=== PATIENT | female | born 1960 | race Hispanic/Latino ===

== ENCOUNTER 2016-10-04 08:36 | Emergency (ER) | payer OTHER ==
[2016-10-04 08:37] VITALS: BMI 54.9
[2016-10-04] MEDS ORDERED: Tetracaine 0.5% Ophth 2 ML BOTTLE OS STA (08:48)
[2016-10-04 08:50] VITALS: BP 101/40; PULSE 84; RESP 16; TEMP 97.8; O2SAT 96
[2016-10-04] MEDS ORDERED: Tetracaine 0.5% Ophth 2 ML BOTTLE ONE (08:55)
--- NOTE | 2016-10-04 09:03 | ED PDOC ---
Arrival/HPI - General Chief Complaint: Eye Problem Time Seen by Provider: 10/04/16 08:48 Historian: Patient - History of Present Illness Narrative History of Present Illness (Text): 10/04/16 08:59 A 56 year old female presents to the emergency department complaining of left eye pain for the past 2 hours. Patient reports she felt something is in her eye and used eye drops, with no relief. Patient states she contacted her PMD who instructed her to come for further evaluation. Patient notes blurry vision but denies any fever, chills, nausea, vomiting, diarrhea, abdominal pain, chest pain , shortness of breath, headache, dizziness or any other complaints. Time/Duration: Other (2 hours, since 07:00 this morning) Symptom Course: Unchanged Quality: Other Context: Home Past Medical History - Provider Review Nursing Documentation Reviewed: Yes - Infectious Disease Hx of Infectious Diseases: None - Tetanus Immunization Tetanus Immunization: Unknown - Cardiac Hx Hypertension: Yes - Pulmonary Hx Asthma: Yes Hx Chronic Obstructive Pulmonary Disease (COPD): Yes - Neurological Hx Migraine: Yes - HEENT Hx HEENT Disorder: No - Renal Hx Renal Disorder: No - Endocrine/Metabolic Hx Endocrine Disorders: No - Hematological/Oncological Hx Blood Disorders: No - Integumentary Hx Dermatological Disorder: No - Musculoskeletal/Rheumatological Hx Arthritis: Yes (pseuriatic) Hx Falls: No Other/Comment: inguinal hernia repair, right rotator cuff sx - Gastrointestinal Hx Diverticulitis: Yes Hx Gastroesophageal Reflux: Yes Other/Comment: cholecystectomy - Psychiatric Hx Depression: Yes Hx Emotional Abuse: No Hx Physical Abuse: No Hx Substance Use: No - Surgical History Hx Cholecystectomy: Yes Hx Orthopedic Surgery: Yes (RIGHT ROTATOR CUFF) - Suicidal Assessment Feels Threatened In Home Enviroment: No Family/Social History - Physician Review Nursing Documentation Reviewed: Yes Family/Social History: No Known Family HX Smoking Status: Current Some Days Smoker Hx Alcohol Use: No Hx Substance Use: No Hx Substance Use Treatment: No Allergies/Home Meds Allergies/Adverse Reactions: Allergies Penicillins Allergy (Verified 10/04/16 08:45) RASH bee stings Allergy (Severe, Uncoded 05/19/14 12:12) ANAPHYLAXIS Home Medications: Home Meds Medication Instructions Recorded Confirmed ALPRAZolam [Xanax] 1 mg PO TID 10/04/16 10/04/16 Albuterol 0.042% [Albuterol 0.042% 3 ml IH Q6H PRN 10/04/16 10/04/16 Inhal Yokasta (1.25mg/3ml) UD] Alosetron HCl 0.5 mg PO BID 10/04/16 10/04/16 Chlorthalidone [Hygroton] 12.5 mg PO MWF 10/04/16 10/04/16 Epinephrine HCl [Epipen 0.3 mg MR PRN PRN 10/04/16 10/04/16 Auto-Injector] Ergocalciferol (Vitamin D2) 50,000 unit PO QWK 10/04/16 10/04/16 [Vitamin D2] Fluocinolone 0.01% Yokasta [Synalar] 1 appl TP BID 10/04/16 10/04/16 Loratadine [Allerclear] 10 mg PO DAILY 10/04/16 10/04/16 Losartan [Cozaar] 100 mg PO DAILY 10/04/16 10/04/16 Mometasone/Formoterol [Dulera] 1 puff IH BID PRN 10/04/16 10/04/16 Montelukast [Singulair] 10 mg PO DAILY 10/04/16 10/04/16 Nystatin [Nyamyc] 100,000 unit TP DAILY 10/04/16 10/04/16 [id number] Ethyl Esters 1 GM 1 gm PO BID 10/04/16 10/04/16 [Lovaza] Omeprazole 40 mg PO DAILY 10/04/16 10/04/16 Ondansetron HCl [Zofran] 4 mg PO BID PRN 10/04/16 10/04/16 Pregabalin [Lyrica] 400 mg PO BID 10/04/16 10/04/16 Prochlorperazine [Compazine] 10 mg PO QID PRN 10/04/16 10/04/16 Ranitidine HCl [Heartburn Relief] 300 mg PO DAILY 10/04/16 10/04/16 Simvastatin 10 mg PO DAILY 10/04/16 10/04/16 Tolterodine [Detrol LA] 2 mg PO DAILY 10/04/16 10/04/16 Ustekinumab [Stelara] mg Q3M 10/04/16 Zolpidem [Ambien] 10 mg PO HS 10/04/16 10/04/16 amLODIPine [Norvasc] 5 mg PO DAILY 10/04/16 10/04/16 amLODIPine [Norvasc] 5 mg PO DAILY 10/04/16 10/04/16 oxyCODONE [oxyCODONE Immediate 30 mg PO BID 10/04/16 10/04/16 Release Tab] rOPINIRole [Requip] 1 mg PO HS 10/04/16 10/04/16 Review of Systems - Physician Review All systems were reviewed & negative as marked: Yes - Review of Systems Constitutional: absent: Fevers, Night Sweats Eyes: Vision Changes (Blurry vision in left eye), Eye Pain (Left eye pain) Respiratory: absent: SOB Cardiovascular: absent: Chest Pain Gastrointestinal: absent: Abdominal Pain, Diarrhea, Nausea, Vomiting Neurological: absent: Headache, Dizziness Physical Exam Vital Signs Reviewed: Yes Vital Signs Temp Pulse Resp BP Pulse Ox 10/04/16 08:46 97.8 F 84 16 101/40 L 96 Temperature: Afebrile Blood Pressure: Hypotensive Pulse: Regular Respiratory Rate: Normal Appearance: Positive for: Well-Appearing, Non-Toxic, Uncomfortable Pain Distress: None Mental Status: Positive for: Alert and Oriented X 3 - Systems Exam Head: Present: Atraumatic, Normocephalic, Other (Eyelid of left eye everted, no foreign body noted. Eye stained with fluorescein and examined with a slit lamp. Patient has a corneal abrasion at the 6 o'clock position, no cells were flared. ) Pupils: Present: PERRL Extroacular Muscles: Present: EOMI Conjunctiva: Present: Normal Mouth: Present: Moist Mucous Membranes Neurological: Present: GCS=15, CN II-XII Intact, Speech Normal Skin: Present: Warm, Dry, Normal Color. No: Rashes Psychiatric: Present: Alert, Oriented x 3, Normal Insight, Normal Concentration Medical Decision Making ED Course and Treatment: 10/04/16 09:[address] Carias's office, who state patient can be seen right away today. I have discussed the results and plan with the patient, who expresses understanding. Patient in agreement with plan. - Medication Orders Current Medication Orders: Discontinued Medications Tetracaine HCl (Tetracaine 0.5% Ophth Soln) 2 drop OS STAT STA Stop: 10/04/16 08:49 Last Admin: 10/04/16 08:59 Dose: 2 drop - Scribe Statement The provider has reviewed the documentation as recorded by the Scribe Deidre Damon Provider Scribe Attestation: All medical record entries made by the Scribe were at my direction and personally dictated by me. I have reviewed the chart and agree that the record accurately reflects my personal performance of the history, physical exam, medical decision making, and the department course for this patient. I have also personally directed, reviewed, and agree with the discharge instructions and disposition. Disposition/Present on Arrival - Present on Arrival Any Indicators Present on Arrival: No History of DVT/PE: No History of Uncontrolled Diabetes: No Urinary Catheter: No History of Decub. Ulcer: No History Surgical Site Infection Following: None - Disposition Have Diagnosis and Disposition been Completed?: Yes Diagnosis: Corneal abrasion Disposition: HOME/ ROUTINE Disposition Time: 09:20 Patient Problems: Current Active Problems Problem Status Onset Corneal abrasion Acute Condition: STABLE Discharge Instructions (ExitCare): Corneal Abrasion (ED) Additional Instructions: Please follow up with the eye doctor in the next 2 days. Return to the ER for any worsening symptoms or for any other concerns. Prescriptions: Erythromycin 0.5% [Ilytocin] 3.5 gm OS QID #1 tube Referrals: Gianfranco Carias MD [Staff Provider] - Follow up with primary
== END 2016-10-04 09:30 | disposition home or self-care (01) ==
LOC: ED 08:36
DX: S05.02XA Injury of conjunctiva and corneal abrasion without foreign body, left eye, initial encounter (principal); X58.XXXA Exposure to other specified factors, initial encounter; Y92.009 Unspecified place in unspecified non-institutional (private) residence as the place of occurrence of the external cause

== ENCOUNTER 2017-01-16 13:02 | Observation (INO) | payer OTHER ==
[2017-01-16 13:24] VITALS: BMI 56.6
[2017-01-16] MEDS ORDERED: Sodium Chloride 0.9% 1,000 ML IV STA (13:40)
[2017-01-16] MEDS ORDERED: Morphine 4 mg/ml ISec IVP STA (13:40)
--- NOTE | 2017-01-16 13:49 | ED PDOC ---
Arrival/HPI - General Chief Complaint: GI Problem Time Seen by Provider: 01/16/17 13:15 Historian: Patient - History of Present Illness Narrative History of Present Illness (Text): 01/16/17 13:43 A 56 year old female, hx of morbid obesity, presents to the emergency department complaining of bloody stool 2 days ago. Patient reports she experiences on and off frequent urgency to go to the bathroom, but then would suddenly feel no use to go. Later on 2 days ago in the evening, she used the bathroom and found to have bloody stool. Patient also states experiencing abdominal pain last night. No other complaints at this time. pt reports multiple episodes of blood in stool. PMD: Dr. Pappas 01/16/17 17:41 Past Medical History - Provider Review Nursing Documentation Reviewed: Yes - Infectious Disease Hx of Infectious Diseases: None - Tetanus Immunization Tetanus Immunization: Unknown - Cardiac Hx Cardiac Disorders: Yes Hx Hypertension: Yes - Pulmonary Hx Asthma: Yes Hx Chronic Obstructive Pulmonary Disease (COPD): Yes - Neurological Hx Neurological Disorder: Yes Hx Migraine: Yes - HEENT Hx HEENT Disorder: No - Renal Hx Renal Disorder: No - Endocrine/Metabolic Hx Endocrine Disorders: No - Hematological/Oncological Hx Blood Disorders: No - Integumentary Hx Dermatological Disorder: No - Musculoskeletal/Rheumatological Hx Arthritis: Yes (pseuriatic) Hx Falls: No Other/Comment: inguinal hernia repair, right rotator cuff sx - Gastrointestinal Hx Diverticulitis: Yes Hx Gastroesophageal Reflux: Yes Other/Comment: cholecystectomy - Genitourinary/Gynecological Hx Genitourinary Disorders: No - Psychiatric Hx Depression: Yes Hx Emotional Abuse: No Hx Physical Abuse: No Hx Substance Use: No - Surgical History Hx Cholecystectomy: Yes Hx Orthopedic Surgery: Yes (RIGHT ROTATOR CUFF) - Anesthesia Hx Anesthesia: Yes Hx Anesthesia Reactions: No - Suicidal Assessment Feels Threatened In Home Enviroment: No Family/Social History - Physician Review Nursing Documentation Reviewed: Yes Family/Social History: No Known Family HX Smoking Status: Current Some Days Smoker Hx Alcohol Use: No Hx Substance Use: No Hx Substance Use Treatment: No Allergies/Home Meds Allergies/Adverse Reactions: Allergies Penicillins Allergy (Verified 01/16/17 13:24) RASH bee stings Allergy (Severe, Uncoded 01/16/17 13:24) ANAPHYLAXIS Home Medications: Home Meds Medication Instructions Recorded Confirmed ALPRAZolam [Xanax] 1 mg PO TID 10/04/16 01/16/17 Albuterol 0.042% [Albuterol 0.042% 3 ml IH Q6H PRN 10/04/16 01/16/17 Inhal Yokasta (1.25mg/3ml) UD] Alosetron HCl 0.5 mg PO BID 10/04/16 01/16/17 Chlorthalidone [Hygroton] 12.5 mg PO MWF 10/04/16 01/16/17 Epinephrine HCl [Epipen 0.3 mg MR PRN PRN 10/04/16 01/16/17 Auto-Injector] Ergocalciferol (Vitamin D2) 50,000 unit PO QWK 10/04/16 01/16/17 [Vitamin D2] Fluocinolone 0.01% Yokasta [Synalar] 1 appl TP BID 10/04/16 01/16/17 Loratadine [Allerclear] 10 mg PO DAILY 10/04/16 01/16/17 Losartan [Cozaar] 100 mg PO DAILY 10/04/16 01/16/17 Mometasone/Formoterol [Dulera] 1 puff IH BID PRN 10/04/16 01/16/17 Montelukast [Singulair] 10 mg PO DAILY 10/04/16 01/16/17 [id number] Ethyl Esters 1 GM 1 gm PO BID 10/04/16 01/16/17 [Lovaza] Omeprazole 40 mg PO DAILY 10/04/16 01/16/17 Ondansetron HCl [Zofran] 4 mg PO BID PRN 10/04/16 01/16/17 Pregabalin [Lyrica] 400 mg PO BID 10/04/16 01/16/17 Prochlorperazine [Compazine] 10 mg PO QID PRN 10/04/16 01/16/17 Ranitidine HCl [Heartburn Relief] 300 mg PO DAILY 10/04/16 01/16/17 Simvastatin 10 mg PO DAILY 10/04/16 01/16/17 Tolterodine [Detrol LA] 2 mg PO DAILY 10/04/16 01/16/17 Ustekinumab [Stelara] 0 mg PO Q3M 10/04/16 01/16/17 Zolpidem [Ambien] 10 mg PO HS 10/04/16 01/16/17 amLODIPine [Norvasc] 5 mg PO DAILY 10/04/16 01/16/17 oxyCODONE [oxyCODONE Immediate 30 mg PO BID 10/04/16 01/16/17 Release Tab] rOPINIRole [Requip] 1 mg PO HS 10/04/16 01/16/17 Review of Systems - Physician Review All systems were reviewed & negative as marked: Yes - Review of Systems Constitutional: absent: Fevers Gastrointestinal: Abdominal Pain, Stool Changes (bloody stool), Other (dyschezia ) Physical Exam Vital Signs Reviewed: Yes Vital Signs Temp Pulse Resp BP Pulse Ox 01/16/17 15:15 67 18 116/74 98 01/16/17 13:02 98.4 F 77 19 118/70 97 Temperature: Afebrile Blood Pressure: Normal Pulse: Regular Respiratory Rate: Normal Appearance: Positive for: Well-Appearing Pain Distress: Mild Mental Status: Positive for: Alert and Oriented X 3 - Systems Exam Head: Present: Atraumatic, Normocephalic Pupils: Present: PERRL Extroacular Muscles: Present: EOMI Conjunctiva: Present: Normal Mouth: Present: Moist Mucous Membranes Neck: Present: Normal Range of Motion Respiratory/Chest: Present: Clear to Auscultation, Good Air Exchange. No: Respiratory Distress, Accessory Muscle Use Cardiovascular: Present: Regular Rate and Rhythm, Normal S1, S2. No: Murmurs Abdomen: Present: Normal Bowel Sounds. No: Tenderness, Distention, Peritoneal Signs Rectal: Present: Other (dark stool wide positive) Back: Present: Normal Inspection Upper Extremity: Present: Normal Inspection. No: Cyanosis, Edema Lower Extremity: Present: Normal Inspection. No: Edema Neurological: Present: GCS=15, CN II-XII Intact, Speech Normal Skin: Present: Warm, Dry, Normal Color. No: Rashes Psychiatric: Present: Alert, Oriented x 3, Normal Insight, Normal Concentration Medical Decision Making ED Course and Treatment: 01/16/17 13:52 Impression: 56 year old female with bloody stool and abdominal pain. Plan: -- EKG -- Abd/Pelvis CT -- Labs -- Urinalysis -- Morphine -- IV Fluids -- Reassess and disposition Prior Visits: Notes and results from previous visits were reviewed. Patient was last seen in the emergency department on 10/04/2016 for left eye pain. Patient was discharged home. Progress Notes: EKG: Ordered, reviewed, and independently interpreted the EKG. Rate : 64 BPM Rhythm : NSR Interpretation : No ST-segment elevations or depressions, no T-wave inversions, normal intervals. Comparison : No previous EKG for comparison. 01/16/17 17:41 h/h stable. in er, dark stool, guiac positive, ct neg, 01/16/2017 17:38 Abd/Pelvis CT FINDINGS: Examination limited by habitus. LOWER THORAX: No visible consolidation, pleural effusion, or pneumothorax. LIVER: Hypoattenuation of the liver compatible with hepatic steatosis. GALLBLADDER AND BILE DUCTS: Cholecystectomy. Mild intra and extrahepatic biliary ductal dilatation. PANCREAS: Unremarkable. SPLEEN: 7 mm probable splenule. Otherwise unremarkable. ADRENALS: 7 mm nodule involving the medial limb left adrenal gland, indeterminate. Unremarkable right adrenal gland. KIDNEYS AND URETERS: The kidneys enhance symmetrically. No hydronephrosis or obstructing calculus identified. VASCULATURE: No aortic aneurysm. BOWEL: Stomach is nondistended. Lack of oral contrast limits evaluation for bowel pathology. Bowel loops appear within normal limits of caliber without evidence of obstruction. APPENDIX: The appendix appears within normal limits of caliber. No secondary signs of acute appendicitis. PERITONEUM: No significant free fluid. No definite free air. LYMPH NODES: No bulky adenopathy identified. BLADDER: Unremarkable. REPRODUCTIVE: The uterus is present. BONES: Mild degenerative changes. OTHER FINDINGS: Surgical clips within the anterior abdomen consistent with remote surgery. IMPRESSION: Cholecystectomy with mild intra and extrahepatic biliary ductal dilatation. 7 mm nodule involving the left adrenal gland medial limb, indeterminate. Hypoattenuation of the liver compatible with hepatic steatosis. Additional incidental findings as above. Dictator: Karla Powers MD 01/16/17 19:17 in er, pt dark stool, guiac postive, no hememesis. dr siddiqui accepts for admission. - Lab Interpretations Lab Results: 01/16/17 13:59 01/16/17 13:59 Lab Results 01/16/17 14:00: Blood Type O POSITIVE, Antibody Screen Negative, BBK History Checked No verified bt 01/16/17 13:59: Sodium 141, Potassium 4.1, Chloride 105, Carbon Dioxide 24, Anion Gap 16, BUN 17, Creatinine 1.0, Est GFR ( Amer) > 60, Est GFR (Non- Af Amer) 57, Random Glucose 87, Calcium 9.3, Total Bilirubin 1.1, AST 25, ALT 36 , Alkaline Phosphatase 86, Lactate Dehydrogenase 533, Total Creatine Kinase 158 , Troponin I < 0.01, Total Protein 7.7, Albumin 4.4, Globulin 3.3, Albumin/ Globulin Ratio 1.3, Amylase 59, Lipase 51 01/16/17 13:59: PT 10.3, INR 0.95, APTT 28.6 01/16/17 13:59: WBC 5.5, RBC 4.57, Hgb 13.9, Hct 39.8, MCV 87.1, MCH 30.4, MCHC 34.9, RDW 13.8, Plt Count 175, MPV 10.5, Gran % 54.2, Lymph % (Auto) 35.2 H, [place] % (Auto) 6.2 H, Eos % (Auto) 4.0, Baso % (Auto) 0.4, Gran # 2.99, Lymph # 1.9, [place] # 0.3, Eos # 0.2, Baso # 0.02 01/16/17 13:30: Urine Color Yellow, Urine Appearance Clear, Urine pH 6.0, Ur Specific [place] 1.010, Urine Protein Negative, Urine Glucose (UA) Negative, Urine Ketones Negative, Urine Blood Negative, Urine Nitrate Negative, Urine Bilirubin Negative, Urine Urobilinogen 0.2, Ur Leukocyte Esterase Negative I have reviewed the lab results: Yes - RAD Interpretation Radiology Orders: 01/16/17 15:42 ABD & PELVIS IV CONTRAST ONLY [CT] Stat - Medication Orders Current Medication Orders: Pantoprazole Sodium (Protonix 40mg Ivpb) 40 mg in 100 mls @ 20 mls/hr IVPB .Q5H JENNIE Last Admin: 01/16/17 19:04 Dose: 20 mls/hr eMAR Start Stop Document 01/16/17 19:04 OCS (Rec: 01/16/17 19:05 OCS [id number]) Intravenous Solution Start Date 01/16/17 Start Time 19:05 Ondansetron HCl (Zofran Inj) 4 mg IVP Q4H PRN PRN Reason: Nausea/Vomiting Pantoprazole Sodium (Protonix Inj) 40 mg IVP DAILY JENNIE Discontinued Medications Sodium Chloride (Sodium Chloride 0.9%) 1,000 mls @ 999 mls/hr IV .Q1H1M STA Stop: 01/16/17 14:40 Last Admin: 01/16/17 14:07 Dose: 999 mls/hr eMAR Start Stop Document 01/16/17 14:07 SE (Rec: 01/16/17 14:07 [id number]) Intravenous Solution Start Date 01/16/17 Start Time 14:07 Morphine Sulfate (Morphine) 4 mg IVP STAT STA Stop: 01/16/17 13:41 Last Admin: 01/16/17 14:07 Dose: 4 mg MAR Pain Assessment Document 01/16/17 14:07 SE (Rec: 01/16/17 14:07 [id number]) Pain Reassessment Is this a pain reassessment? No Sleep Is patient sleeping during reassessment? No Presence of Pain Presence of Pain Yes Pain Scale Used Pain Scale Used Numeric IVP Administration Document 01/16/17 14:07 SE (Rec: 01/16/17 14:07 [id number]) Charges for Administration # of IVP Administrations 1 Morphine Sulfate (Morphine) 2 mg IVP STAT STA Stop: 01/16/17 16:24 Last Admin: 01/16/17 16:37 Dose: 2 mg MAR Pain Assessment Document 01/16/17 16:37 OCS (Rec: 01/16/17 16:38 [place] [id number]) Pain Reassessment Is this a pain reassessment? Yes Sleep Is patient sleeping during reassessment? No Presence of Pain Presence of Pain Yes Pain Scale Used Pain Scale Used Numeric Description Description Constant Intensity of Pain at present 8 IVP Administration Document 01/16/17 16:37 OCS (Rec: 01/16/17 16:38 OCS [id number]) Charges for Administration # of IVP Administrations 1 Ondansetron HCl (Zofran Inj) 4 mg IVP STAT STA Stop: 01/16/17 15:14 Last Admin: 01/16/17 15:27 Dose: 4 mg IVP Administration Document 01/16/17 15:27 OCS (Rec: 01/16/17 15:27 [id number] Charges for Administration # of IVP Administrations 1 Pantoprazole Sodium (Protonix Inj) 40 mg IVP STAT STA Stop: 01/16/17 16:23 Last Admin: 01/16/17 16:38 Dose: 40 mg IVP Administration Document 01/16/17 16:38 OCS (Rec: 01/16/17 16:38 OCS [id number]) Charges for Administration # of IVP Administrations 1 - Scribe Statement The provider has reviewed the documentation as recorded by the Edgard Hayes Provider Scribe Attestation: All medical record entries made by the Scribe were at my direction and personally dictated by me. I have reviewed the chart and agree that the record accurately reflects my personal performance of the history, physical exam, medical decision making, and the department course for this patient. I have also personally directed, reviewed, and agree with the discharge instructions and disposition. Disposition/Present on Arrival - Present on Arrival Any Indicators Present on Arrival: No History of DVT/PE: No History of Uncontrolled Diabetes: No Urinary Catheter: No History of Decub. Ulcer: No History Surgical Site Infection Following: None - Disposition Have Diagnosis and Disposition been Completed?: Yes Diagnosis: GI bleed Disposition: HOSPITALIZED Disposition Time: 05:45 Condition: STABLE Referrals: Codie Pappas DO [Primary Care Provider] - Follow up with primary Forms: [employer] (German)
[2017-01-16 14:20] LABS: BASO # 0.02 K/mm3 (0.0-2.0); BASO % 0.4 % (0.0-3.0); EOS # 0.2 (0.0-0.7); GRAN # 2.99 (1.4-6.5); GRAN % 54.2 % (50.0-68.0); HEMATOCRIT 39.8 % (36.0-48.0); LYMPH # 1.9 (1.2-3.4); LYMPH % 35.2 % (22.0-35.0); MEAN CELL VOLUME 87.1 fl (80.0-105.0); MEAN CORPUSCULAR HEMOGLOBIN 30.4 pg (25.0-35.0); MEAN CORPUSCULAR HGB CONC 34.9 g/dl (31.0-37.0); MEAN PLATELET VOLUME 10.5 fl (7.0-11.0); MONO # 0.3 (0.1-0.6); MONO % 6.2 % (1.0-6.0); RED CELL DISTRIBUTION WIDTH 13.8 % (11.5-14.5); WHITE BLOOD COUNT 5.5 10^3/ul (4.5-11.0)
[2017-01-16 14:23] LABS: URINE BILIRUBIN NEGATIVE (NEGATIVE); URINE BLOOD NEGATIVE (NEGATIVE); URINE GLUCOSE (UA) NEGATIVE (NEGATIVE); URINE KETONE NEGATIVE (NEGATIVE); URINE LEUKOCYTE ESTERASE NEGATIVE Leu/uL (NEGATIVE); URINE PROTEIN NEGATIVE mg/dL (<30 mg/dL); URINE UROBILINOGEN 0.2 E.U./dL (<1 E.U./dL)
[2017-01-16 14:24] LABS: URINE APPEARANCE CLEAR (CLEAR); URINE COLOR YELLOW (YELLOW)
[2017-01-16 14:31] LABS: INR 0.95 (0.93-1.08); PARTIAL THROMBOPLASTIN TIME 28.6 Seconds (23.7-30.8)
[2017-01-16 14:44] LABS: ALB/GLOB RATIO 1.3 (1.1-1.8); ALKALINE PHOSPHATASE 86 U/L (38-126); ALT/SGPT 36 U/L (7-56); AMYLASE 59 U/L (35-125); AST/SGOT 25 U/L (14-36); BILIRUBIN,TOTAL 1.1 mg/dL (0.2-1.3); BLOOD UREA NITROGEN 17 mg/dL (7-21); CALCIUM 9.3 mg/dL (8.4-10.5); CARBON DIOXIDE 24 mmol/L (21-33); CHLORIDE 105 mmol/L (98-107); GFR AFRICAN-AMERICAN > 60; GLUCOSE,RANDOM 87 mg/dL (70-110); LIPASE 51 U/L (23-300); POTASSIUM 4.1 mmol/L (3.6-5.0); SODIUM 141 mmol/L (132-148); TOTAL PROTEIN 7.7 g/dL (5.8-8.3)
[2017-01-16 14:58] LABS: TROPONIN I < 0.01 ng/mL
[2017-01-16] MEDS ORDERED: Morphine 2 mg/ml ISec IVP STA (16:23)
--- NOTE | 2017-01-16 17:39 | CT ---
PROCEDURE: CT Abdomen and Pelvis with contrast HISTORY: abd pain, gi bleed COMPARISON: CT abdomen and pelvis without contrast performed 08/15/13 TECHNIQUE: Contrast dose: 150 mL Omnipaque 350 Radiation dose: Total exam DLP = 1354.88 MGy-cm. This CT exam was performed using one or more of the following dose reduction techniques: Automated exposure control, adjustment of the mA and/or kV according to patient size, and/or use of iterative reconstruction technique. FINDINGS: Examination limited by habitus. LOWER THORAX: No visible consolidation, pleural effusion, or pneumothorax. LIVER: Hypoattenuation of the liver compatible with hepatic steatosis. GALLBLADDER AND BILE DUCTS: Cholecystectomy. Mild intra and extrahepatic biliary ductal dilatation. PANCREAS: Unremarkable. SPLEEN: 7 mm probable splenule. Otherwise unremarkable. ADRENALS: 7 mm nodule involving the medial limb left adrenal gland, indeterminate. Unremarkable right adrenal gland. KIDNEYS AND URETERS: The kidneys enhance symmetrically. No hydronephrosis or obstructing calculus identified. VASCULATURE: No aortic aneurysm. BOWEL: Stomach is nondistended. Lack of oral contrast limits evaluation for bowel pathology. Bowel loops appear within normal limits of caliber without evidence of obstruction. APPENDIX: The appendix appears within normal limits of caliber. No secondary signs of acute appendicitis. PERITONEUM: No significant free fluid. No definite free air. LYMPH NODES: No bulky adenopathy identified. BLADDER: Unremarkable. REPRODUCTIVE: The uterus is present. BONES: Mild degenerative changes. OTHER FINDINGS: Surgical clips within the anterior abdomen consistent with remote surgery. IMPRESSION: Cholecystectomy with mild intra and extrahepatic biliary ductal dilatation. 7 mm nodule involving the left adrenal gland medial limb, indeterminate. Hypoattenuation of the liver compatible with hepatic steatosis. Additional incidental findings as above.
--- NOTE | 2017-01-16 18:47 | CP.PCM.HP ---
<Ronald Cruz - Last Filed: 01/16/17 18:58> History of Present Illness - History of Present Illness History of Present Illness: This is a 56 year old female with a past medical history irritable bowel syndrome, Gerd, Diverticulosis, Gastritis, Psoriatic arthritis, Asthma, COPD (5 Hospitalizations), PTSD, Depression, Panic attacks, anxiety attacks, migraines, sciatica, and agoraphobia who comes in complaining of bright read blood per rectum since Friday night. The patient reports after having a bowel movement the patient went to wipe herself when she saw the toilet was full of blood. The patient reports she have over five episodes that occurred on Friday and multiple episodes today. The patient states that her urge to go is brought on by simultaneously having to urinate. When she sits down to urinate is when she has the bowel movements. The patient reports pain during and after having bowel movements. The patient denies any chest pain, shortness of breath, nausea , vomiting, headache, sore throat, dizziness, or any other complaints. PMD: Dr. Bhagat GI Doctor: Dr. Perez PMHx: See per HPI Meds: See JUN Surgeryhx: gallbladder surgery, rotator cuff surgery of right arm (twice), c- section, hernia surgery (twice),left torrez repair, lumpectomy, Allergies: Penicillin/ Bee stings(Anaphylaxis) Present on Admission - Present on Admission Any Indicators Present on Admission: No Review of Systems - Constitutional Constitutional: As Per HPI - EENT Eyes: As Per HPI Ears: As Per HPI Nose/Mouth/Throat: As Per HPI - Cardiovascular Cardiovascular: As Per HPI - Respiratory Respiratory: As Per HPI - Gastrointestinal Gastrointestinal: As Per HPI - Genitourinary Genitourinary: Flank Pain - Musculoskeletal Musculoskeletal: As Per HPI - Integumentary Integumentary: As Per HPI - Neurological Neurological: As Per HPI - Psychiatric Psychiatric: As Per HPI - Endocrine Endocrine: As Per HPI - Hematologic/Lymphatic Hematologic: As Per HPI Past Patient History - Infectious Disease Hx of Infectious Diseases: None - Tetanus Immunizations Tetanus Immunization: Unknown - Past Social History Smoking Status: Current Some Days Smoker - CARDIAC Hx Cardiac Disorders: Yes Hx Hypertension: Yes - PULMONARY Hx Asthma: Yes Hx Chronic Obstructive Pulmonary Disease (COPD): Yes - NEUROLOGICAL Hx Neurological Disorder: Yes Hx Migraine: Yes - HEENT Hx HEENT Problems: No - RENAL Hx Chronic Kidney Disease: No - ENDOCRINE/METABOLIC Hx Endocrine Disorders: No - HEMATOLOGICAL/ONCOLOGICAL Hx Blood Disorders: No - INTEGUMENTARY Hx Dermatological Problems: No - MUSCULOSKELETAL/RHEUMATOLOGICAL Hx Arthritis: Yes (pseuriatic) Hx Falls: No Other/Comment: inguinal hernia repair, right rotator cuff sx - GASTROINTESTINAL Hx Diverticulitis: Yes Hx Gastroesophageal Reflux: Yes Other/Comment: cholecystectomy - GENITOURINARY/GYNECOLOGICAL Hx Genitourinary Disorders: No - PSYCHIATRIC Hx Depression: Yes Hx Emotional Abuse: No Hx Physical Abuse: No Hx Substance Use: No - SURGICAL HISTORY Hx Cholecystectomy: Yes Hx Orthopedic Surgery: Yes (RIGHT ROTATOR CUFF) - ANESTHESIA Hx Anesthesia: Yes Hx Anesthesia Reactions: No Meds Home Medications: Home Medication List Medication Instructions Recorded Confirmed Type Polyethylene Glycol 3350 [Miralax] 17 gm PO DAILY PRN #14 ml 01/17/17 Rx Allergies/Adverse Reactions: Allergies Allergy/AdvReac Type Severity Reaction Status Date / Time Penicillins Allergy RASH Verified 01/16/17 13:24 bee stings Allergy Severe ANAPHYLAXIS Uncoded 01/16/17 13:24 Physical Exam - Constitutional Appears: Well, Non-toxic - Head Exam Head Exam: ATRAUMATIC, NORMAL INSPECTION, NORMOCEPHALIC - Eye Exam Eye Exam: EOMI, Normal appearance, PERRL. absent: Periorbital tenderness Pupil Exam: NORMAL ACCOMODATION, PERRL. absent: Irregular, Unequal - ENT Exam ENT Exam: Mucous Membranes Moist, Normal Oropharynx - Neck Exam Neck exam: Positive for: Normal Inspection. Negative for: Lymphadenopathy, Thyromegaly - Respiratory Exam Respiratory Exam: Clear to Auscultation Bilateral, NORMAL BREATHING PATTERN. absent: Accessory Muscle Use, Chest Wall Tenderness, Respiratory Distress - Cardiovascular Exam Cardiovascular Exam: REGULAR RHYTHM, RRR, +S1, +S2. absent: Gallop, Rubs - GI/Abdominal Exam GI & Abdominal Exam: Normal Bowel Sounds. absent: Diminished Bowel Sounds, Hypoactive Bowel Sounds, Organomegaly - Extremities Exam Extremities exam: Positive for: calf tenderness, full ROM, normal inspection. Negative for: joint swelling, pedal edema, tenderness - Back Exam Back exam: NORMAL INSPECTION. absent: CVA tenderness (L), CVA tenderness (R), paraspinal tenderness - Neurological Exam Neurological exam: Alert, CN II-XII Intact, Oriented x3 - Psychiatric Exam Psychiatric exam: Normal Affect, Normal Mood - Skin Skin Exam: Dry, Intact Results - Vital Signs Recent Vital Signs: Last Vital Signs Temp 98.4 F 01/16/17 13:02 Pulse 67 01/16/17 15:15 Resp 18 01/16/17 15:15 BP 116/74 01/16/17 15:15 Pulse Ox 98 01/16/17 15:15 - Labs Result Diagrams: 01/16/17 13:59 01/16/17 13:59 Labs: Laboratory Results - last 24 hr 01/16/17 01/16/17 01/16/17 13:30 13:59 13:59 WBC 5.5 RBC 4.57 Hgb 13.9 Hct 39.8 MCV 87.1 MCH 30.4 MCHC 34.9 RDW 13.8 Plt Count 175 MPV 10.5 Gran % 54.2 Lymph % (Auto) 35.2 H [place] % (Auto) 6.2 H Eos % (Auto) 4.0 Baso % (Auto) 0.4 Gran # 2.99 Lymph # 1.9 [place] # 0.3 Eos # 0.2 Baso # 0.02 PT 10.3 INR 0.95 APTT 28.6 Sodium Potassium Chloride Carbon Dioxide Anion Gap BUN Creatinine Est GFR ( Amer) Est GFR (Non-Af Amer) Random Glucose Calcium Total Bilirubin AST ALT Alkaline Phosphatase Lactate Dehydrogenase Total Creatine Kinase Troponin I Total Protein Albumin Globulin Albumin/Globulin Ratio Amylase Lipase Urine Color Yellow Urine Appearance Clear Urine pH 6.0 Ur Specific [place] 1.010 Urine Protein Negative Urine Glucose (UA) Negative Urine Ketones Negative Urine Blood Negative Urine Nitrate Negative Urine Bilirubin Negative Urine Urobilinogen 0.2 Ur Leukocyte Esterase Negative Blood Type Antibody Screen BBK History Checked 01/16/17 01/16/17 13:59 14:00 WBC RBC Hgb Hct MCV MCH MCHC RDW Plt Count MPV Gran % Lymph % (Auto) [place] % (Auto) Eos % (Auto) Baso % (Auto) Gran # Lymph # [place] # Eos # Baso # PT INR APTT Sodium 141 Potassium 4.1 Chloride 105 Carbon Dioxide 24 Anion Gap 16 BUN 17 Creatinine 1.0 Est GFR ( Amer) > 60 Est GFR (Non-Af Amer) 57 Random Glucose 87 Calcium 9.3 Total Bilirubin 1.1 AST 25 ALT 36 Alkaline Phosphatase 86 Lactate Dehydrogenase 533 Total Creatine Kinase 158 Troponin I < 0.01 Total Protein 7.7 Albumin 4.4 Globulin 3.3 Albumin/Globulin Ratio 1.3 Amylase 59 Lipase 51 Urine Color Urine Appearance Urine pH Ur Specific [place] Urine Protein Urine Glucose (UA) Urine Ketones Urine Blood Urine Nitrate Urine Bilirubin Urine Urobilinogen Ur Leukocyte Esterase Blood Type O POSITIVE Antibody Screen Negative BBK History Checked No verified bt Assessment & Plan - Assessment and Plan (Free Text) Assessment: This is a 56 year old morbidly obese female bloody stool and abdominal pain. Plan: Blood per rectum 2/2 to hemorrhoids vs. IBS vs. diverticular disease -dark stool wide positive on Physical Exam per E.D. Physician. -Abdomen and Pelvis CT: Cholecystectomy with mild intra and extrahepatic biliary ductal dilatation. 7 mm nodule involving the left adrenal gland medial limb, indeterminate. Hypoattenuation of the liver compatible with hepatic steatosis. -H/H: (13.9/39.8). Blood pressure stable. Will continue to monitor with serial CBC's. -GI consulted. Will f/u with rec's tomorrow. 2.Asthma -continue home meds 3.IBS -hold home meds -f/u with GI rec's tomorrow 4.Hypertension -Patient normotensive on exam 116/74. -Hold BP meds. Will monitor closely. 5.Chronic back pain -Continue home meds. -Expected to have spinal fusion surgery in February by Dr. Schilling. GI PPX -protonix <Syd Celis - Last Filed: 01/17/17 12:42> Results - Vital Signs Recent Vital Signs: Last Vital Signs Temp 98.7 F 01/17/17 11:56 Pulse 66 01/17/17 11:56 Resp 18 01/17/17 11:56 BP 107/46 L 01/17/17 11:56 Pulse Ox 99 01/17/17 06:00 - Labs Result Diagrams: 01/17/17 05:30 01/17/17 06:15 Labs: Laboratory Results - last 24 hr 01/17/17 01/17/17 01/17/17 05:30 06:15 06:15 WBC 3.9 L D RBC 4.10 Hgb 12.2 Hct 35.8 L MCV 87.3 MCH 29.8 MCHC 34.1 RDW 14.0 Plt Count 146 MPV 10.3 Sodium 139 Potassium 3.9 Chloride 103 Carbon Dioxide 26 Anion Gap 14 BUN 15 Creatinine 1.0 Est GFR ( Amer) > 60 Est GFR (Non-Af Amer) 57 Random Glucose 92 Calcium 9.0 Blood Type Confirm O POSITIVE Attending/Attestation - Attestation I have personally seen and examined this patient.: Yes I have fully participated in the care of the patient.: Yes I have reviewed all pertinent clinical information: Yes Notes (Text): 01/17/17 12:35 hospitalist note; Patient seen and examined with resident in ER. Patient is a 56 year old female with a past medical history irritable bowel syndrome, Gerd, Diverticulosis, Gastritis, Psoriatic arthritis, Asthma, COPD , PTSD, Depression, Panic attacks, anxiety attacks, migraines, sciatica, and agoraphobia who comes in complaining of bright red blood per rectum. Currently complaining of mild abdominal discomfort. Patient with a history of irritable bowel syndrome in the past. Occasional constipation. Recent EGD showed no active ulcer. Patient had colonoscopy 2 years ago. She follows up with Dr.Krohn CRIST[facility] as outpatient. GI evaluation requested. Currently hemoglobin is stable. Patient is hemodynamically stable. repeat hemoglobin in a.m.. CT abdomen and pelvis did not show any significant abnormality. Patient with chronic back pain; on long-term opiates. Advised to taper down opiates. hypertension; blood pressure on the lower side. hold BP meds for now. Mostly secondary to opiates/sedative medications. Upon discharge the patient will follow-up with PMD .
[2017-01-16] MEDS: Pantoprazole 40mg/100ml IVPB 40 MG/100 ML BAG IVPB SCH ×2 (19:04→23:10)
--- NOTE | 2017-01-16 20:43 | CARD ---
APPROVED REPORT EKG Measurement Heart [id number] <Conclusion> Normal sinus rhythm Low voltage QRS Borderline ECG
[2017-01-16] MEDS: Morphine 2 mg/ml ISec IVP PRN (22:07)
[2017-01-17] MEDS: Morphine 2 mg/ml ISec IVP PRN ×2 (03:07→09:10)
[2017-01-17] MEDS: Pantoprazole 40mg/100ml IVPB 40 MG/100 ML BAG IVPB SCH (03:46)
[2017-01-17 06:26] LABS: HEMATOCRIT 35.8 % (36.0-48.0); MEAN CELL VOLUME 87.3 fl (80.0-105.0); MEAN CORPUSCULAR HEMOGLOBIN 29.8 pg (25.0-35.0); MEAN CORPUSCULAR HGB CONC 34.1 g/dl (31.0-37.0); MEAN PLATELET VOLUME 10.3 fl (7.0-11.0); WHITE BLOOD COUNT 3.9 10^3/ul (4.5-11.0)
[2017-01-17 06:38] VITALS: O2SAT 99
[2017-01-17 06:47] LABS: BLOOD UREA NITROGEN 15 mg/dL (7-21); CARBON DIOXIDE 26 mmol/L (21-33); CHLORIDE 103 mmol/L (95-110); GFR AFRICAN-AMERICAN > 60; GLUCOSE,RANDOM 92 mg/dL (70-110); POTASSIUM 3.9 mmol/L (3.6-5.0); SODIUM 139 mmol/L (132-148)
[2017-01-17] MEDS ORDERED: Sodium Chloride 0.9% 1,000 ML IV STA (06:55)
[2017-01-17] MEDS ORDERED: Sodium Chloride 0.9% 1,000 ML IV SCH (08:00)
--- NOTE | 2017-01-17 10:11 | CP.PCM.DIS ---
<Kamila Ly - Last Filed: 01/17/17 15:52> Provider - Provider Date of Admission: 01/16/17 17:48 Attending physician: Syd Celis MD Primary care physician: Codie Pappas DO Consults: GI: Homer Time Spent in preparation of Discharge (in minutes): 32 Hospital Course - Lab Results Lab Results: Most Recent Lab Values WBC 3.9 10^3/ul (4.5-11.0) L D 01/17/17 05:30 RBC 4.10 10^6/uL (3.5-6.1) 01/17/17 05:30 Hgb 12.2 g/dL (12.0-16.0) 01/17/17 05:30 Hct 35.8 % (36.0-48.0) L 01/17/17 05:30 MCV 87.3 fl (80.0-105.0) 01/17/17 05:30 MCH 29.8 pg (25.0-35.0) 01/17/17 05:30 MCHC 34.1 g/dl (31.0-37.0) 01/17/17 05:30 RDW 14.0 % (11.5-14.5) 01/17/17 05:30 Plt Count 146 10^3/uL (120.0-450.0) 01/17/17 05:30 MPV 10.3 fl (7.0-11.0) 01/17/17 05:30 Gran % 54.2 % (50.0-68.0) 01/16/17 13:59 Lymph % (Auto) 35.2 % (22.0-35.0) H 01/16/17 13:59 [place] % (Auto) 6.2 % (1.0-6.0) H 01/16/17 13:59 Eos % (Auto) 4.0 % (1.5-5.0) 01/16/17 13:59 Baso % (Auto) 0.4 % (0.0-3.0) 01/16/17 13:59 Gran # 2.99 (1.4-6.5) 01/16/17 13:59 Lymph # 1.9 (1.2-3.4) 01/16/17 13:59 [place] # 0.3 (0.1-0.6) 01/16/17 13:59 Eos # 0.2 (0.0-0.7) 01/16/17 13:59 Baso # 0.02 K/mm3 (0.0-2.0) 01/16/17 13:59 PT 10.3 Seconds (9.9-11.8) 01/16/17 13:59 INR 0.95 (0.93-1.08) 01/16/17 13:59 APTT 28.6 Seconds (23.7-30.8) 01/16/17 13:59 Sodium 139 mmol/L (132-148) 01/17/17 06:15 Potassium 3.9 mmol/L (3.6-5.0) 01/17/17 06:15 Chloride 103 mmol/L (95-110) 01/17/17 06:15 Carbon Dioxide 26 mmol/L (21-33) 01/17/17 06:15 Anion Gap 14 (10-20) 01/17/17 06:15 BUN 15 mg/dL (7-21) 01/17/17 06:15 Creatinine 1.0 mg/dL (0.7-1.2) 01/17/17 06:15 Est GFR ( Amer) > 60 01/17/17 06:15 Est GFR (Non-Af Amer) 57 01/17/17 06:15 Random Glucose 92 mg/dL (70-110) 01/17/17 06:15 Calcium 9.0 mg/dL (8.4-10.5) 01/17/17 06:15 Total Bilirubin 1.1 mg/dL (0.2-1.3) 01/16/17 13:59 AST 25 U/L (14-36) 01/16/17 13:59 ALT 36 U/L (7-56) 01/16/17 13:59 Alkaline Phosphatase 86 U/L (38-126) 01/16/17 13:59 Lactate Dehydrogenase 533 U/L (333-699) 01/16/17 13:59 Total Creatine Kinase 158 U/L (35-230) 01/16/17 13:59 Troponin I < 0.01 ng/mL 01/16/17 13:59 Total Protein 7.7 g/dL (5.8-8.3) 01/16/17 13:59 Albumin 4.4 g/dL (3.0-4.8) 01/16/17 13:59 Globulin 3.3 gm/dL 01/16/17 13:59 Albumin/Globulin Ratio 1.3 (1.1-1.8) 01/16/17 13:59 Amylase 59 U/L (35-125) 01/16/17 13:59 Lipase 51 U/L (23-300) 01/16/17 13:59 Urine Color Yellow (YELLOW) 01/16/17 13:30 Urine Appearance Clear (CLEAR) 01/16/17 13:30 Urine pH 6.0 (4.7-8.0) 01/16/17 13:30 Ur Specific [place] 1.010 (1.005-1.035) 01/16/17 13:30 Urine Protein Negative mg/dL (<30 mg/dL) 01/16/17 13:30 Urine Glucose (UA) Negative mg/dL (NEGATIVE) 01/16/17 13:30 Urine Ketones Negative mg/dL (NEGATIVE) 01/16/17 13:30 Urine Blood Negative (NEGATIVE) 01/16/17 13:30 Urine Nitrate Negative (NEGATIVE) 01/16/17 13:30 Urine Bilirubin Negative (NEGATIVE) 01/16/17 13:30 Urine Urobilinogen 0.2 E.U./dL (<1 E.U./dL) 01/16/17 13:30 Ur Leukocyte Esterase Negative Duy/uL (NEGATIVE) 01/16/17 13:30 Blood Type O POSITIVE 01/16/17 14:00 Blood Type Confirm O POSITIVE 01/17/17 06:15 Antibody Screen Negative 01/16/17 14:00 BBK History Checked No verified bt 01/16/17 14:00 - Hospital Course Hospital Course: 56 year old female with a past medical history irritable bowel syndrome, Gerd, Diverticulosis, Gastritis, Psoriatic arthritis, Asthma, COPD (5 Hospitalizations ), PTSD, Depression, Panic attacks, anxiety attacks, migraines, sciatica, and agoraphobia who comes in complaining of bright read blood per rectum since Friday night. The patient reports after having a bowel movement the patient went to wipe herself when she saw the toilet was full of blood. The patient reports she have over five episodes that occurred on Friday and multiple episodes today. The patient states that her urge to go is brought on by simultaneously having to urinate. When she sits down to urinate is when she has the bowel movements. The patient reports pain during and after having bowel movements. Patient was admitted for rectal bleeding and abdominal pain. GI was consulted and on the case. CT/abd pelvis showed cholecystectomy with mild intra and extrahepatic biliary duct dilation. 7mm nodule involving the L adrenal gland medial limb, hypoattenuation of the liver compatible with hepatic steatosis. No evidence of blood was seen on rectal exam, +internal hemorrhoids. Patient has a few hypotensive BP readings, H/H was checked and was stable. Patient given a bolus of fluids. BPs improved. Diet was advanced to regular. Patient tolerated diet well. Abdominal pain improved. Patient to follow up with GI within 1-2 weeks of discharge. Continue PPI BID as instructed by outpatient GI. Medications reconciled. Patient to follow up with PMD within 1 week. Hold BP medications at this time. F/U with PMD for BP check. Discharge Exam - Head Exam Head Exam: ATRAUMATIC, NORMAL INSPECTION, NORMOCEPHALIC - Eye Exam Eye Exam: EOMI, Normal appearance Pupil Exam: NORMAL ACCOMODATION - ENT Exam ENT Exam: Mucous Membranes Moist - Neck Exam Neck exam: Full Rom - Respiratory Exam Respiratory Exam: Clear to PA & Lateral, NORMAL BREATHING PATTERN, UNREMARKABLE. absent: Rhonchi, Wheezes, Respiratory Distress - Cardiovascular Exam Cardiovascular Exam: REGULAR RHYTHM, +S1, +S2 - GI/Abdominal Exam GI & Abdominal Exam: Soft, Tenderness (Mild Right sided abdominal tenderness). absent: Firm, Guarding, Rebound, Rigid - Rectal Exam Rectal Exam: Hemorrhoids - Extremities Exam Extremities exam: pedal pulses present - Back Exam Back exam: NORMAL INSPECTION - Neurological Exam Neurological exam: Alert, Oriented x3 - Psychiatric Exam Psychiatric exam: Normal Affect, Normal Mood - Skin Skin Exam: Dry, Normal Color, Warm Discharge Plan - Discharge Medications Prescriptions: Hard Fat/Phenylephrine [place] [Hemorrhoidal 88.7%-0.25%] 1 sup [place] DAILY PRN #30 sup MDD 4 PRN Reason: Hemorrhoids Polyethylene Glycol 3350 [Miralax] 17 gm PO DAILY PRN #14 ml PRN Reason: Constipation - Follow Up Plan Condition: STABLE Disposition: HOME/ ROUTINE Instructions: Gastrointestinal Bleeding (DC), Acute Nausea and Vomiting (DC) Additional Instructions: 1. Follow up with PMD and GI within 1-2 weeks 2. Miralax daily prn constipation 3. Continue home medications 4. Continue proper hemorrhoidal care 5. Anusol suppository therapy PRN for hemorrhoid relief 6. CT abd/pelvis showing 7mm L adrenal nodule, follow up with PMD 7. Hold BP medications at this time, f/u with PMD for BP check Referrals: Codie Pappas DO [Primary Care Provider] - <Sdy Celis - Last Filed: 01/17/17 16:03> Provider - Provider Date of Admission: 01/16/17 17:48 Attending physician: Syd Celis MD Primary care physician: Codie Pappas DO Hospital Course - Lab Results Lab Results: Most Recent Lab Values WBC 3.9 10^3/ul (4.5-11.0) L D 01/17/17 05:30 RBC 4.10 10^6/uL (3.5-6.1) 01/17/17 05:30 Hgb 12.2 g/dL (12.0-16.0) 01/17/17 05:30 Hct 35.8 % (36.0-48.0) L 01/17/17 05:30 MCV 87.3 fl (80.0-105.0) 01/17/17 05:30 MCH 29.8 pg (25.0-35.0) 01/17/17 05:30 MCHC 34.1 g/dl (31.0-37.0) 01/17/17 05:30 RDW 14.0 % (11.5-14.5) 01/17/17 05:30 Plt Count 146 10^3/uL (120.0-450.0) 01/17/17 05:30 MPV 10.3 fl (7.0-11.0) 01/17/17 05:30 Gran % 54.2 % (50.0-68.0) 01/16/17 13:59 Lymph % (Auto) 35.2 % (22.0-35.0) H 01/16/17 13:59 [place] % (Auto) 6.2 % (1.0-6.0) H 01/16/17 13:59 Eos % (Auto) 4.0 % (1.5-5.0) 01/16/17 13:59 Baso % (Auto) 0.4 % (0.0-3.0) 01/16/17 13:59 Gran # 2.99 (1.4-6.5) 01/16/17 13:59 Lymph # 1.9 (1.2-3.4) 01/16/17 13:59 [place] # 0.3 (0.1-0.6) 01/16/17 13:59 Eos # 0.2 (0.0-0.7) 01/16/17 13:59 Baso # 0.02 K/mm3 (0.0-2.0) 01/16/17 13:59 PT 10.3 Seconds (9.9-11.8) 01/16/17 13:59 INR 0.95 (0.93-1.08) 01/16/17 13:59 APTT 28.6 Seconds (23.7-30.8) 01/16/17 13:59 Sodium 139 mmol/L (132-148) 01/17/17 06:15 Potassium 3.9 mmol/L (3.6-5.0) 01/17/17 06:15 Chloride 103 mmol/L (95-110) 01/17/17 06:15 Carbon Dioxide 26 mmol/L (21-33) 01/17/17 06:15 Anion Gap 14 (10-20) 01/17/17 06:15 BUN 15 mg/dL (7-21) 01/17/17 06:15 Creatinine 1.0 mg/dL (0.7-1.2) 01/17/17 06:15 Est GFR ( Amer) > 60 01/17/17 06:15 Est GFR (Non-Af Amer) 57 01/17/17 06:15 Random Glucose 92 mg/dL (70-110) 01/17/17 06:15 Calcium 9.0 mg/dL (8.4-10.5) 01/17/17 06:15 Total Bilirubin 1.1 mg/dL (0.2-1.3) 01/16/17 13:59 AST 25 U/L (14-36) 01/16/17 13:59 ALT 36 U/L (7-56) 01/16/17 13:59 Alkaline Phosphatase 86 U/L (38-126) 01/16/17 13:59 Lactate Dehydrogenase 533 U/L (333-699) 01/16/17 13:59 Total Creatine Kinase 158 U/L (35-230) 01/16/17 13:59 Troponin I < 0.01 ng/mL 01/16/17 13:59 Total Protein 7.7 g/dL (5.8-8.3) 01/16/17 13:59 Albumin 4.4 g/dL (3.0-4.8) 01/16/17 13:59 Globulin 3.3 gm/dL 01/16/17 13:59 Albumin/Globulin Ratio 1.3 (1.1-1.8) 01/16/17 13:59 Amylase 59 U/L (35-125) 01/16/17 13:59 Lipase 51 U/L (23-300) 01/16/17 13:59 Urine Color Yellow (YELLOW) 01/16/17 13:30 Urine Appearance Clear (CLEAR) 01/16/17 13:30 Urine pH 6.0 (4.7-8.0) 01/16/17 13:30 Ur Specific [place] 1.010 (1.005-1.035) 01/16/17 13:30 Urine Protein Negative mg/dL (<30 mg/dL) 01/16/17 13:30 Urine Glucose (UA) Negative mg/dL (NEGATIVE) 01/16/17 13:30 Urine Ketones Negative mg/dL (NEGATIVE) 01/16/17 13:30 Urine Blood Negative (NEGATIVE) 01/16/17 13:30 Urine Nitrate Negative (NEGATIVE) 01/16/17 13:30 Urine Bilirubin Negative (NEGATIVE) 01/16/17 13:30 Urine Urobilinogen 0.2 E.U./dL (<1 E.U./dL) 01/16/17 13:30 Ur Leukocyte Esterase Negative Duy/uL (NEGATIVE) 01/16/17 13:30 Blood Type O POSITIVE 01/16/17 14:00 Blood Type Confirm O POSITIVE 01/17/17 06:15 Antibody Screen Negative 01/16/17 14:00 BBK History Checked No verified bt 01/16/17 14:00 Attending/Attestation - Attestation I have personally seen and examined this patient.: Yes I have fully participated in the care of the patient.: Yes I have reviewed all pertinent clinical information, including history, physical exam and plan: Yes Notes (Text): 01/17/17 15:59 Hospitalist note; Patient seen and examined with resident. Patient is a 56 year old female with a past medical history irritable bowel syndrome, Gerd, Diverticulosis, Gastritis, Psoriatic arthritis, Asthma, COPD , PTSD, Depression, migraines, sciatica who comes in complaining of bright red blood per rectum. Currently complaining of mild abdominal discomfort. Patient with a history of irritable bowel syndrome in the past. Occasional constipation. Recent EGD showed no active ulcer. Patient had colonoscopy 2 years ago. She follows up with Dr.Krohn CRISTOBAL as outpatient. GI evaluation appreciated. Currently hemoglobin is stable. Patient is hemodynamically stable. repeat hemoglobin is 12.2. CT abdomen and pelvis did not show any significant abnormality. started on diet. Patient with chronic back pain; on long-term opiates. Advised to taper down opiates. hypertension; blood pressure on the lower side. hold BP meds for now. Mostly secondary to opiates/sedative medications. Upon discharge the patient will follow-up with PMD . diagnosis; rectal bleed GERD Arthritis Obesity COPD opiate dependency Chronic back pain 01/17/17 16:03
--- NOTE | 2017-01-17 10:59 | CP.PCM.CON ---
<Julio CesarSkyler - Last Filed: 01/17/17 11:00> History of Present Illness - History of Present Illness History of Present Illness: PGY4 Initial GI Consult Carol Waite is a 56F w/ hx of irritable bowel syndrome, Gerd, Diverticulosis , Gastritis, Psoriatic arthritis, Asthma, COPD (5 Hospitalizations), PTSD, Depression, Panic attacks, anxiety attacks, migraines, sciatica, and agoraphobia who presents to the ER with complaints of BRBPR. She states that she first saw blood in her toliet bowel 3 days go. He states that it was in the blod and when she wiped. She also complains of constipation. Pt states that she has small Bm every 3-4 days. He state that she was actively treated fro IBS-D for years and then transient to more constipation. She does admit to having hemorrhoids and have been an issue for her in the last. He also states that she has RLQ pain. Onset weeks to months and the pain is intermittent. She describes it as a girdle. She denies any aggravating or alleviating factors. Pt notes that she also had a colonoscopy in 2014 and states that it was normal but was told to repeat screening in 3 years. She has a reg GI physician on the outside. Her last appt with her GI doc was 1 week ago. She recently had an EGD 1 month ago was told to start PPI BID, but she does not recall the finding. Since admission, she does not report any additional episodes of BRBPR, melena, or hematemsis. She states that he abd pain is still present but minimal. GI Doctor: Dr. Perez PMHx: irritable bowel syndrome, Gerd, Diverticulosis, Gastritis, Psoriatic arthritis, Asthma, COPD (5 Hospitalizations), PTSD, Depression, Panic attacks, anxiety attacks, migraines, sciatica, and agoraphobia Surgeryhx: gallbladder surgery, rotator cuff surgery of right arm (twice), c- section, hernia surgery (twice),left torrez repair, lumpectomy, Social hx: denies any smoking, illicitdrugs or ETOH use ROS: 12-point ROS conducted, neg other than above Past Patient History - Infectious Disease Hx of Infectious Diseases: None - Tetanus Immunizations Tetanus Immunization: Unknown - Past Social History Smoking Status: Former Smoker - CARDIAC Hx Hypercholesterolemia: Yes Hx Hypertension: Yes Hx Peripheral Edema: Yes - PULMONARY Hx Asthma: Yes Hx Bronchitis: Yes Hx Chronic Obstructive Pulmonary Disease (COPD): Yes - NEUROLOGICAL Hx Migraine: Yes - HEENT Hx HEENT Problems: Yes (glasses) - RENAL Hx Chronic Kidney Disease: No - ENDOCRINE/METABOLIC Hx Endocrine Disorders: No - HEMATOLOGICAL/ONCOLOGICAL Hx Blood Disorders: No - INTEGUMENTARY Hx Dermatological Problems: No - MUSCULOSKELETAL/RHEUMATOLOGICAL Hx Musculoskeletal Disorders: Yes (Sciatica, neuropathy) Hx Falls: Yes Hx Spinal Stenosis: Yes - GASTROINTESTINAL Hx Gastrointestinal Disorders: Yes (IBS) Hx Diverticulitis: Yes Hx Gastroesophageal Reflux: Yes - GENITOURINARY/GYNECOLOGICAL Hx Genitourinary Disorders: No - PSYCHIATRIC Hx Anxiety: Yes Hx Depression: Yes Hx Panic Symptoms: Yes Hx Post Traumatic Stress Disorder: Yes - SURGICAL HISTORY Hx Surgeries: Yes (R breast Lumpectomy) Hx Cholecystectomy: Yes Hx Orthopedic Surgery: Yes - ANESTHESIA Hx Anesthesia: Yes Hx Anesthesia Reactions: No Meds Allergies/Adverse Reactions: Allergies Allergy/AdvReac Type Severity Reaction Status Date / Time Penicillins Allergy RASH Verified 01/16/17 13:24 bee stings Allergy Severe ANAPHYLAXIS Uncoded 01/16/17 13:24 - Medications Medications: Current Medications Sodium Chloride (Sodium Chloride 0.9%) 1,000 mls @ 75 mls/hr IV .[id number] [facility] Last Admin: 01/17/17 09:11 Dose: 75 mls/hr Morphine Sulfate (Morphine) 2 mg IVP Q4H PRN PRN Reason: Pain, severe (8-10) Last Admin: 01/17/17 09:10 Dose: 2 mg Ondansetron HCl (Zofran Inj) 4 mg IVP Q4H PRN PRN Reason: Nausea/Vomiting Last Admin: 01/16/17 22:07 Dose: 4 mg Pantoprazole Sodium (Protonix Inj) 40 mg IVP DAILY [facility] Last Admin: 01/17/17 09:11 Dose: 40 mg Physical Exam - Constitutional Appears: Well, No Acute Distress - Head Exam Head Exam: ATRAUMATIC, NORMOCEPHALIC - Eye Exam Eye Exam: Normal appearance - ENT Exam ENT Exam: Mucous Membranes Moist, Normal Exam - Neck Exam Neck exam: Positive for: Normal Inspection - Respiratory Exam Respiratory Exam: Clear to Auscultation Bilateral, NORMAL BREATHING PATTERN. absent: Prolonged Expiratory Phase, Rales, Rhonchi, Wheezes, Respiratory Distress - Cardiovascular Exam Cardiovascular Exam: REGULAR RHYTHM, +S1, +S2 - GI/Abdominal Exam GI & Abdominal Exam: Normal Bowel Sounds, Soft. absent: Firm, Guarding, Hernia , Pulsatile Mass, Rebound, Rigid, Tenderness - Rectal Exam Additional comments: no blood or melena in rectal vault - Neurological Exam Neurological exam: Alert, Oriented x3 - Psychiatric Exam Psychiatric exam: Normal Affect, Normal Mood - Skin Skin Exam: Dry, Intact, Normal Color, Warm Results - Vital Signs Recent Vital Signs: Last Vital Signs Temp 98 F 01/17/17 06:00 Pulse 67 01/17/17 06:00 Resp 20 01/17/17 06:00 BP 92/58 L 01/17/17 06:38 Pulse Ox 99 01/17/17 06:00 - Labs Result Diagrams: 01/17/17 05:30 01/17/17 06:15 Labs: Laboratory Results - last 24 hr 01/17/17 01/17/17 01/17/17 05:30 06:15 06:15 WBC 3.9 L D RBC 4.10 Hgb 12.2 Hct 35.8 L MCV 87.3 MCH 29.8 MCHC 34.1 RDW 14.0 Plt Count 146 MPV 10.3 Sodium 139 Potassium 3.9 Chloride 103 Carbon Dioxide 26 Anion Gap 14 BUN 15 Creatinine 1.0 Est GFR ( Amer) > 60 Est GFR (Non-Af Amer) 57 Random Glucose 92 Calcium 9.0 Blood Type Confirm O POSITIVE Assessment & Plan - Assessment and Plan (Free Text) Assessment: Carol Waite is a 56F w/ hx of irritable bowel syndrome, Gerd, Diverticulosis , Gastritis, Psoriatic arthritis, Asthma, COPD (5 Hospitalizations), PTSD, Depression, Panic attacks, anxiety attacks, migraines, sciatica, and agoraphobia who presents with BRBPR and abd pain. Etiology of BRBPR is likely hemorrhoidal DDx: diverticular, AVM, IBD, and malignancy 1. BRBPR likely hemorrhoidal 2. Constipation 3. Abd pain 4. GERD 5. Obesity Plan: -proper bowel habits and hemorrhoidal care explained to the pt -should follow-up with own GI physcian within 1-2 weeks of discharge -recommend continuing miralax daily -advance diet as tolerated -will not pursue a colonoscopy at this time -continue PPI BID as instructed by her primary oupt GI -avoid narcotics and hydrate -consulted on weight loss D/W Dr. Coronel <HomerRashaunEdmond Y - Last Filed: 01/17/17 11:18> Meds - Medications Medications: Current Medications Sodium Chloride (Sodium Chloride 0.9%) 1,000 mls @ 75 mls/hr IV .[id number] [facility] Last Admin: 01/17/17 09:11 Dose: 75 mls/hr Morphine Sulfate (Morphine) 2 mg IVP Q4H PRN PRN Reason: Pain, severe (8-10) Last Admin: 01/17/17 09:10 Dose: 2 mg Ondansetron HCl (Zofran Inj) 4 mg IVP Q4H PRN PRN Reason: Nausea/Vomiting Last Admin: 01/16/17 22:07 Dose: 4 mg Pantoprazole Sodium (Protonix Inj) 40 mg IVP DAILY [facility] Last Admin: 01/17/17 09:11 Dose: 40 mg Results - Vital Signs Recent Vital Signs: Last Vital Signs Temp 98 F 01/17/17 06:00 Pulse 67 01/17/17 06:00 Resp 20 01/17/17 06:00 BP 92/58 L 01/17/17 06:38 Pulse Ox 99 01/17/17 06:00 - Labs Result Diagrams: 01/17/17 05:30 01/17/17 06:15 Labs: Laboratory Results - last 24 hr 01/17/17 01/17/17 01/17/17 05:30 06:15 06:15 WBC 3.9 L D RBC 4.10 Hgb 12.2 Hct 35.8 L MCV 87.3 MCH 29.8 MCHC 34.1 RDW 14.0 Plt Count 146 MPV 10.3 Sodium 139 Potassium 3.9 Chloride 103 Carbon Dioxide 26 Anion Gap 14 BUN 15 Creatinine 1.0 Est GFR ( Amer) > 60 Est GFR (Non-Af Amer) 57 Random Glucose 92 Calcium 9.0 Blood Type Confirm O POSITIVE Attending/Attestation - Attestation I have personally seen and examined this patient.: Yes I have fully participated in the care of the patient.: Yes I have reviewed all pertinent clinical information: Yes Notes (Text): 01/17/17 11:10 I have seen and examined patient with GI fellow. Agree with above documentation with the following additions. In brief, this is a 56 year old female with history of IBS-M, depression, anxiety, chronic back pain, COPD who presents to hospital with complaints of rectal bleeding which began 3 days ago. She describes having recent constipation with straining during defecation, her typical bowel habit pattern is once every 3-4 days. She also describes intermittent RLQ abdominal pain without any associated nausea, vomiting, fever/ chills, weight loss, or change in bowel habits. She has not had any recurrent rectal bleeding since arrival to hospital. She recently had an EGD last month with private GI physician which was reportedly normal and a colonoscopy 2 years ago which was also supposedly normal, though patient is scheduled to repeat procedure in July 2017. Additional physical exam: Abdomen: obese, no palpable hepato/splenomegaly Obesity COPD IBS-M Depression / anxiety Rectal bleeding - no evidence of blood seen on rectal exam performed today, + internal hemorrhoids CT imaging reviewed by me showing hepatic steatosis, s/p cholecystectomy. No gross bowel pathology noted. - Diet as tolerated - H/H stable, continue to monitor - Suggest bowel regimen to prevent recent constipation symptoms - Suggest reduction in chronic narcotic pain medication as this may worsen existing symptoms - Anusol suppository therapy PRN for hemorrhoid relief - No current plan for GI intervention, from GI standpoint ok to discharge home with outpatient follow up with her private GI physician. Will sign off case, please reconsult as necessary. Case discussed with Dr. Celis.
[2017-01-17 11:16] VITALS: PULSE 66
[2017-01-17] MEDS ORDERED: POLYETHYLENE GLYCOL 3350 17 GM/Dose PACKET PO ONE ×2 (11:16→14:53)
[2017-01-17 11:57] VITALS: BP 107/46; RESP 18; TEMP 98.7
== END 2017-01-17 15:47 | disposition home or self-care (01) ==
LOC: ED 13:02 → ERH 17:48 → INTOOBSV 17:48 → ERH 19:50 → 2RNO 20:55
PROVIDERS: ADMIT Internal Medicine; ATTEND Internal Medicine
DX: K62.5 Hemorrhage of anus and rectum (principal); K21.9 Gastro-esophageal reflux disease without esophagitis; L40.50 Arthropathic psoriasis, unspecified; J44.9 Chronic obstructive pulmonary disease, unspecified; K58.9 Irritable bowel syndrome, unspecified; F43.10 Post-traumatic stress disorder, unspecified; F41.1 Generalized anxiety disorder; F41.0 Panic disorder [episodic paroxysmal anxiety]; F40.00 Agoraphobia, unspecified; F32.9 Major depressive disorder, single episode, unspecified; M54.30 Sciatica, unspecified side; K29.70 Gastritis, unspecified, without bleeding; G43.909 Migraine, unspecified, not intractable, without status migrainosus; G89.29 Other chronic pain; M54.9 Dorsalgia, unspecified; K64.8 Other hemorrhoids; K76.0 Fatty (change of) liver, not elsewhere classified; I10 Essential (primary) hypertension; K57.90 Diverticulosis of intestine, part unspecified, without perforation or abscess without bleeding; E66.01 Morbid (severe) obesity due to excess calories; Z68.43 Body mass index [BMI] 50.0-59.9, adult; Z79.891 Long term (current) use of opiate analgesic; Z88.0 Allergy status to penicillin
CPT/HCPCS: 36415; 74177; 80048; 80053; 81003; 82150; 82550; 83615; 83690; 84484; 85025; 85027; 85610; 85730; 86850; 86900; 93005; 96374; 96375; 96376; 99285; C9113; G0378; J2270; J2405; J7040; Q9967

== ENCOUNTER 2017-03-05 16:01 | Emergency (ER) | payer OTHER ==
[2017-03-05 16:17] VITALS: BMI 54.9
[2017-03-05] MEDS ORDERED: Sodium Chloride 0.9% 1,000 ML IV STA (16:53)
[2017-03-05] MEDS ORDERED: Morphine 4 mg/ml ISec IVP STA (16:53)
[2017-03-05] MEDS ORDERED: Morphine 2 mg/ml ISec IVP STA (16:56)
--- NOTE | 2017-03-05 17:18 | ED PDOC ---
Arrival/HPI - History of Present Illness Time/Duration: 4-6 hours Symptom Onset: Sudden Symptom Course: Unchanged Quality: Aching, Stabbing Severity Level: 10 Activities at Onset: Rest, Light Context: Home, Other (With defecation) <Jude Gómez - Last Filed: 03/05/17 17:56> <Bharat Rosario DO - Last Filed: 03/05/17 18:40> - General Chief Complaint: GI Problem Time Seen by Provider: 03/05/17 16:32 - History of Present Illness Narrative History of Present Illness (Text): 03/05/17 17:06 Ms. Waite is a 56 year old female with a past medical history significant for IBS, colonic polyps, Psoariasis, HTN, HLD, and COPD who presents to the [facility] [place] with a chief complaint of pain with defecation and bloody stools. Patient states that earlier today, she had a small bowel movement that caused her a significant amount of pain and resulted in her toilet bowel being filled with blood. Several hours later, patient reports that she had a "very big" bowel movement that caused an increase in her pain and as well as the amount of blood she noticed. Patient states that she also experienced associated nausea and dizziness with the second BM. Patient reports that she has had painless bloody BM's in the past that did not concern her and that her chief concern is the amount of pain that she experienced. She is followed by GI and has regular follow up as an outpatient, including recent colonoscopy in 2015 that revealed colonic polyps. She reports that she often cycles between regular BM's and constipation. She endorses straining and hard stools on a regular basis. She denies fevers, chills, headache, changes in her vision, chest pain, palpitations , SOB, cough, wheezing, abdominal pain, vomiting, diarrhea, burning/pain with urination, hematuria, vaginal bleeding/discharge, rash, or any numbness/tingling /weakness of any extremity. (Jude Gómez) Past Medical History - Provider Review Nursing Documentation Reviewed: Yes - Travel History Have you recently traveled outside [place] w/in the past 3 mons?: No - Past History Past History: No Previous - Infectious Disease Hx of Infectious Diseases: None - Tetanus Immunization Tetanus Immunization: Unknown - Cardiac Hx Hypertension: Yes Hx Peripheral Edema: Yes - Pulmonary Hx Asthma: Yes Hx Bronchitis: Yes Hx Chronic Obstructive Pulmonary Disease (COPD): Yes - Neurological Hx Migraine: Yes - HEENT Hx HEENT Disorder: Yes (glasses) - Renal Hx Renal Disorder: No - Endocrine/Metabolic Hx Endocrine Disorders: No - Hematological/Oncological Hx Blood Disorders: No - Integumentary Hx Dermatological Disorder: No - Musculoskeletal/Rheumatological Hx Musculoskeletal Disorders: Yes (Sciatica, neuropathy) Hx Falls: Yes Hx Spinal Stenosis: Yes - Gastrointestinal Hx Gastrointestinal Disorders: Yes (IBS) Hx Diverticulitis: Yes Hx Gastroesophageal Reflux: Yes - Genitourinary/Gynecological Hx Genitourinary Disorders: No - Psychiatric Hx Anxiety: Yes Hx Depression: Yes Hx Panic Disorder: Yes Hx Post Traumatic Stress Disorder: Yes Hx Substance Use: No - Surgical History Hx Cholecystectomy: Yes Hx Orthopedic Surgery: Yes - Anesthesia Hx Anesthesia: Yes Hx Anesthesia Reactions: No - Suicidal Assessment Feels Threatened In Home Enviroment: No <Jude Gómez - Last Filed: 03/05/17 17:56> Family/Social History - Physician Review Nursing Documentation Reviewed: Yes Family/Social History: No Known Family HX Smoking Status: Former Smoker Hx Alcohol Use: No Hx Substance Use: No Hx Substance Use Treatment: No <Jude Gómez - Last Filed: 03/05/17 17:56> Allergies/Home Meds <Jude Gómez - Last Filed: 03/05/17 17:56> <Bharat Rosario DO - Last Filed: 03/05/17 18:40> Allergies/Adverse Reactions: Allergies Penicillins Allergy (Verified 03/05/17 16:17) RASH bee stings Allergy (Severe, Uncoded 03/05/17 16:17) ANAPHYLAXIS Home Medications: Home Meds Medication Instructions Recorded Confirmed ALPRAZolam [Xanax] 1 mg PO TID 10/04/16 03/05/17 Albuterol 0.042% [Albuterol 0.042% 3 ml IH Q6H PRN 10/04/16 03/05/17 Inhal Yokasta (1.25mg/3ml) UD] Alosetron HCl 0.5 mg PO BID 10/04/16 03/05/17 Chlorthalidone [Hygroton] 12.5 mg PO MWF 10/04/16 03/05/17 Epinephrine HCl [Epipen 0.3 mg MR PRN PRN 10/04/16 03/05/17 Auto-Injector] Fluocinolone 0.01% Yokasta [Synalar 1 appl TP BID 10/04/16 03/05/17 0.01% Soln] Loratadine [Allerclear] 10 mg PO DAILY 10/04/16 03/05/17 Losartan [Cozaar] 100 mg PO DAILY 10/04/16 03/05/17 Montelukast [Singulair] 10 mg PO DAILY 10/04/16 03/05/17 [id number] Ethyl Esters 1 GM 1 gm PO BID 10/04/16 03/05/17 [Lovaza] Omeprazole 40 mg PO DAILY 10/04/16 03/05/17 Ondansetron HCl [Zofran] 4 mg PO BID PRN 10/04/16 03/05/17 Pregabalin [Lyrica] 400 mg PO BID 10/04/16 03/05/17 Prochlorperazine [Compazine] 10 mg PO QID PRN 10/04/16 03/05/17 Ranitidine HCl [Heartburn Relief] 300 mg PO DAILY 10/04/16 03/05/17 Simvastatin 10 mg PO DAILY 10/04/16 03/05/17 Tolterodine [Detrol LA] 2 mg PO DAILY 10/04/16 03/05/17 Ustekinumab [Stelara] 0 mg PO Q3M 10/04/16 03/05/17 Zolpidem [Ambien] 10 mg PO HS 10/04/16 03/05/17 amLODIPine [Norvasc] 5 mg PO DAILY 10/04/16 03/05/17 oxyCODONE [oxyCODONE Immediate 30 mg PO BID 10/04/16 03/05/17 Release Tab] Calcium No.1/D3/B6/FA/B12/Aloe 1 each PO DAILY 03/05/17 03/05/17 [Vitamin D3-Aloe 1,000 Unit Tab] Ketoconazole 2% Shampoo [Nizoral 120 ml TP DAILY 03/05/17 03/05/17 2%] Nystatin [Nyamyc] 100,000 unit TP DAILY 03/05/17 03/05/17 Spironolactone [Aldactone] 50 mg PO DAILY 03/05/17 03/05/17 rOPINIRole [Requip] 1 mg PO HS 03/05/17 03/05/17 Review of Systems - Physician Review All systems were reviewed & negative as marked: Yes - Review of Systems Constitutional: Normal. absent: Fevers, Night Sweats Eyes: Normal. absent: Vision Changes ENT: Normal Respiratory: Normal. absent: SOB, Cough, Sputum, Wheezing Cardiovascular: Normal. absent: Chest Pain, Palpitations Gastrointestinal: Nausea, Hematochezia (As per HPI). absent: Normal, Abdominal Pain, Constipation, Diarrhea, Vomiting Genitourinary Female: Normal. absent: Dysuria, Frequency, Vaginal Bleeding, Vaginal Discharge Musculoskeletal: Normal. absent: Arthralgias, Back Pain, Neck Pain, Joint Swelling, Myalgias Skin: Normal. absent: Rash Neurological: Dizziness. absent: Normal, Headache Endocrine: Normal Hemo/Lymphatic: Normal Psychiatric: Normal <Jude Gómez - Seb Filed: 03/05/17 17:56> Physical Exam Vital Signs Reviewed: Yes Temperature: Afebrile Blood Pressure: Normal Pulse: Regular Respiratory Rate: Normal Appearance: Positive for: Well-Appearing, Non-Toxic, Uncomfortable Pain Distress: Moderate Mental Status: Positive for: Alert and Oriented X 3 - Systems Exam Head: Present: Atraumatic, Normocephalic Pupils: Present: PERRL Extroacular Muscles: Present: EOMI Conjunctiva: Present: Normal Mouth: Present: Moist Mucous Membranes Neck: Present: Normal Range of Motion Respiratory/Chest: Present: Clear to Auscultation, Good Air Exchange. No: Respiratory Distress, Accessory Muscle Use Cardiovascular: Present: Regular Rate and Rhythm, Normal S1, S2. No: Murmurs Abdomen: Present: Tenderness (Left sided abdmominal tenderness to palpation), Normal Bowel Sounds. No: Distention, Peritoneal Signs Rectal: Present: Occult Blood (GFOBT positive), Rectal Tenderness, Normal Rectal Tone. No: Gross Blood, Melena, Hemorrhoids, Fissures, Nodule/Mass/ Lesions Back: Present: Normal Inspection Upper Extremity: Present: Normal Inspection. No: Cyanosis, Edema Lower Extremity: Present: Normal Inspection. No: Edema Neurological: Present: GCS=15, CN II-XII Intact, Speech Normal Skin: Present: Warm, Dry, Normal Color. No: Rashes Psychiatric: Present: Alert, Oriented x 3, Normal Insight, Normal Concentration <Jude Gómez - Last Filed: 03/05/17 17:56> Vital Signs Temp Pulse Resp BP Pulse Ox 03/05/17 16:28 134/70 03/05/17 16:17 97.9 F 102 H 21 134/70 94 L 03/05/17 16:16 97.9 F 102 H 21 94 L Medical Decision Making - Lab Interpretations I have reviewed the lab results: Yes - RAD Interpretation Gauger Delivery: ED Physician, Radiologist <Jude Gómez - Last Filed: 03/05/17 17:56> <Bharat Rosario DO - Last Filed: 03/05/17 18:40> ED Course and Treatment: 03/05/17 17:20 Impression: 56 year old female with a past medical history significant for IBS, colonic polyps, Psoariasis, HTN, HLD, and COPD who presents to the [facility] [place] with a chief complaint of pain with defecation and bloody stools Plan: -CBC, CMP -Abdominal X-Ray -Guaiac Stool -Reassess and condition Prior Visits: 01/2017: Patient was seen and evaluated for the same complaint (Jude Gómez) - Lab Interpretations Lab Results: 03/05/17 17:29 03/05/17 17:29 Lab Results 03/05/17 17:29: Sodium 138, Potassium 4.2, Chloride 102, Carbon Dioxide 27, Anion Gap 14, BUN 18, Creatinine 0.9, Est GFR ( Amer) > 60, Est GFR (Non- Af Amer) > 60, Random Glucose 95, Calcium 9.6, Total Bilirubin 1.2, AST 25, ALT 31, Alkaline Phosphatase 84, Total Protein 7.7, Albumin 4.2, Globulin 3.6, Albumin/Globulin Ratio 1.2, Lipase 38 03/05/17 17:29: PT 12.2, INR 1.12 H, APTT 29.2 03/05/17 17:29: WBC 7.3 D, RBC 4.53, Hgb 13.7, Hct 39.5, MCV 87.2, MCH 30.2, MCHC 34.7, RDW 14.0, Plt Count 183, MPV 10.7, Gran % 68.5 H, Lymph % (Auto) 23.6 , Hudspeth % (Auto) 4.9, Eos % (Auto) 2.5, Baso % (Auto) 0.5, Gran # 5.01, Lymph # 1.7, Hudspeth # 0.4, Eos # 0.2, Baso # 0.04 - RAD Interpretation Radiology Orders: 03/05/17 16:54 obstructive series [ABD 2 VIEWS (FLAT/UP OR DECUB)] [RAD] Stat - Medication Orders Current Medication Orders: Sodium Chloride (Sodium Chloride 0.9%) 1,000 mls @ 100 mls/hr IV .Q10H STA Stop: 03/06/17 02:52 Last Admin: 03/05/17 17:33 Dose: 100 mls/hr eMAR Start Stop Document 03/05/17 17:33 RG (Rec: 03/05/17 17:34 RG [id number]) Intravenous Solution Start Date 03/05/17 Start Time 17:34 Ondansetron HCl (Zofran Inj) 4 mg IVP STAT STA Stop: 03/05/17 18:40 Discontinued Medications Morphine Sulfate (Morphine) 2 mg IVP STAT STA Stop: 03/05/17 16:57 Last Admin: 03/05/17 17:33 Dose: 2 mg MAR Pain Assessment Document 03/05/17 17:33 RG (Rec: 03/05/17 17:33 RG [id number]) Pain Reassessment Is this a pain reassessment? Yes Presence of Pain Presence of Pain Yes Pain Scale Used Pain Scale Used Numeric Location Pain Location Body Site Abdomen Description Description Constant Pain Behavior Guarding IVP Administration Document 03/05/17 17:33 (Rec: 03/05/17 17:33 RG [id number]) Charges for Administration # of IVP Administrations 1 - PA / GEAR CUTTER / Resident Statement COLIN has reviewed & agrees with the documentation as recorded. COLIN has examined the patient and agrees with the treatment plan. <Bharat Rosario DO - Last Filed: 03/05/17 18:40> Disposition/Present on Arrival - Present on Arrival Any Indicators Present on Arrival: No History of DVT/PE: No History of Uncontrolled Diabetes: No Urinary Catheter: No History of Decub. Ulcer: No History Surgical Site Infection Following: None - Disposition Have Diagnosis and Disposition been Completed?: No <Jude Gómez - Last Filed: 03/05/17 17:56> - Disposition Disposition Time: 18:30 <Bharat Rosario DO - Last Filed: 03/05/17 18:40> - Disposition Diagnosis: Constipation Disposition: HOME/ ROUTINE Condition: IMPROVED Discharge Instructions (ExitCare): Constipation (ED), High Fiber Diet (ED), Irritable Bowel Syndrome (ED) Additional Instructions: Thank you for letting us take care of you today. The emergency medical care you received today was directed at your acute symptoms. If you were prescribed any medication, please fill it and take as directed. It may take several days for your symptoms to resolve. Return to the Emergency Department if your symptoms worsen, do not improve, or if you have any other problems. Please contact your doctor or call one of the physicians/clinics you have been referred to that are listed on the Patient Visit Information form that is included in your discharge packet. Bring any paperwork you were given at discharge with you along with any medications you are taking to your follow up visit. Our treatment cannot replace ongoing medical care by a primary care provider (PCP) outside of the emergency department. Thank you for allowing the [facility] team to be part of your care today. Follow up with your doctor in 2-3 days for outpatient care and further management. Prescriptions: Ondansetron ODT [Zofran ODT] 4 mg PO Q8 PRN #20 odt PRN Reason: Nausea/Vomiting oxyCODONE [oxyCODONE Immediate Release Tab] 5 mg PO Q6 PRN #10 tab PRN Reason: Pain, Severe (8-10) Referrals: Sheila Gannon, [Primary Care Provider] - Follow up with primary Forms: [employer] (Yakut)
[2017-03-05 17:57] LABS: ALB/GLOB RATIO 1.2 (1.1-1.8); ALKALINE PHOSPHATASE 84 U/L (38-126); ALT/SGPT 31 U/L (7-56); AST/SGOT 25 U/L (14-36); BILIRUBIN,TOTAL 1.2 mg/dL (0.2-1.3); BLOOD UREA NITROGEN 18 mg/dL (7-21); CALCIUM 9.6 mg/dL (8.4-10.5); CARBON DIOXIDE 27 mmol/L (21-33); CHLORIDE 102 mmol/L (98-107); GFR AFRICAN-AMERICAN > 60; GLUCOSE,RANDOM 95 mg/dL (70-110); LIPASE 38 U/L (23-300); POTASSIUM 4.2 mmol/L (3.6-5.0); SODIUM 138 mmol/L (132-148); TOTAL PROTEIN 7.7 g/dL (5.8-8.3)
[2017-03-05 18:01] LABS: INR 1.12 (0.93-1.08); PARTIAL THROMBOPLASTIN TIME 29.2 Seconds (25.1-36.5)
[2017-03-05 18:05] LABS: BASO # 0.04 K/mm3 (0.0-2.0); BASO % 0.5 % (0.0-3.0); EOS # 0.2 (0.0-0.7); EOS % 2.5 % (1.5-5.0); GRAN # 5.01 (1.4-6.5); GRAN % 68.5 % (50.0-68.0); HEMATOCRIT 39.5 % (36.0-48.0); LYMPH # 1.7 (1.2-3.4); LYMPH % 23.6 % (22.0-35.0); MEAN CELL VOLUME 87.2 fl (80.0-105.0); MEAN CORPUSCULAR HEMOGLOBIN 30.2 pg (25.0-35.0); MEAN CORPUSCULAR HGB CONC 34.7 g/dl (31.0-37.0); MEAN PLATELET VOLUME 10.7 fl (7.0-11.0); MONO # 0.4 (0.1-0.6); MONO % 4.9 % (1.0-6.0); WHITE BLOOD COUNT 7.3 10^3/ul (4.5-11.0)
[2017-03-05 19:15] VITALS: BP 140/66; PULSE 90; RESP 18; TEMP 98.5; O2SAT 99
--- NOTE | 2017-03-06 11:19 | RAD ---
HISTORY: r/o obstruction (constipation) COMPARISON: Comparison made with CT scan abdomen pelvis dated 01/16/2017. FINDINGS: BOWEL: No gross free intraperitoneal air seen under the diaphragmatic surfaces. There appears to be a moderately large amount of stool within the at ascending colon consistent with fecal retention/ constipation. No evidence of acute mechanical bowel obstruction. Metallic surgical clips seen in the right mid abdomen consistent with cholecystectomy. . BONES: Normal. OTHER FINDINGS: None. IMPRESSION: Findings suggest mild fecal retention/ constipation right colon as above. No evidence of acute mechanical bowel obstruction. Changes of cholecystectomy.
== END 2017-03-05 19:16 | disposition home or self-care (01) ==
LOC: ED 16:01
DX: K59.00 Constipation, unspecified (principal); I10 Essential (primary) hypertension; K21.9 Gastro-esophageal reflux disease without esophagitis; Z87.891 Personal history of nicotine dependence
CPT/HCPCS: 74020; 80053; 83690; 85025; 85610; 85730; 96374; 96375; 99285; J2270; J2405; J7040